=== PATIENT | male | born 1960 ===

== ENCOUNTER 2016-07-09 08:24 | Day surgery (SDC) | payer BC, MEDICAID ==
[2016-07-02 11:04] VITALS: BMI 24.3
[2016-07-09] MEDS ORDERED: Bupivacaine/Epi 0.25%-1:200,000 10 ml PF inj IJ ONE (10:13)
[2016-07-09] MEDS ORDERED: Lidocaine 1% Inj (20ml) ONE (10:14)
[2016-07-09] MEDS ORDERED: cefOXitin IV 1 gm in Dextrose 0 GM/0 ML BAG IVPB ONE (10:14)
[2016-07-09] MEDS ORDERED: Bupivacaine-Epi 0.5%-1:200,000 PF Inj ONE (10:18)
[2016-07-09] MEDS ORDERED: Lactated Ringer's 1,000 ML IV ONE ×3 (10:50→14:30)
[2016-07-09] MEDS ORDERED: Propofol 10 mg/ml Inj (20 ML) ONE (10:53)
[2016-07-09] MEDS ORDERED: Midazolam 2 MG/2 ML VIAL ONE (10:53)
[2016-07-09] MEDS: cefOXitin IV 2 gm in Dextrose 2 GM/50 ML BAG IVPB ONE ×2 (11:05→11:36)
[2016-07-09] MEDS ORDERED: Neostigmine Methylsulfate 3mg/3ml Syringe IV ONE (11:48)
--- NOTE | 2016-07-09 12:34 | PCM.SURG1 ---
Surgeon's Initial Post Op Note - Surgeon's Notes Surgeon: Dr. Maldonado Sales Agent: Dr. Rees PGY-2, Tierney HERNANDEZ Type of Anesthesia: General Endo, Local Pre-Operative Diagnosis: Symptomatic cholelithiasis Operative Findings: intrahepatic gallbladder Post-Operative Diagnosis: Symptomatic cholelithiasis Operation Performed: Laparoscopic cholecystectomy Specimen/Specimens Removed: gallbladder Estimated Blood Loss: EBL {In ML}: 20 Blood Products Given: N/A Drains Used: No Drains Post-Op Condition: Good Date of Surgery/Procedure: 07/09/16 Time of Surgery/Procedure: 12:35
[2016-07-09] MEDS ORDERED: HYDROmorphone 0.5 mg/0.5 ml ISec IVP PRN (12:37)
[2016-07-09] MEDS ORDERED: HYDROmorphone 1 mg/ml ISec ONE ×2 (13:04→14:23)
[2016-07-09 16:39] VITALS: BP 116/66; PULSE 82; RESP 20; TEMP 98; O2SAT 99
--- NOTE | 2016-07-12 08:16 | OP ---
PROCEDURE DATE: 07/09/2016 PREOPERATIVE DIAGNOSES: Chronic cholecystitis and cholelithiasis. POSTOPERATIVE DIAGNOSES: Chronic cholecystitis and cholelithiasis. PROCEDURE DONE: Laparoscopic cholecystectomy. SURGEON: Ruben Maldonado MD. DIALYSIS EQUIPMENT TECHNICIAN: Keke Rees, PGY-1 resident. ANESTHESIA: General endotracheal tube anesthesia. ESTIMATED BLOOD LOSS: Around 10 mL. DRAINS: None. PATHOLOGY: Gallbladder was sent for pathology. COMPLICATIONS: None. INTRAOPERATIVE FINDINGS: The patient had changes of chronic cholecystitis and cholelithiasis. INTRAOPERATIVE STEPS: This 56-year-old male was diagnosed with a chronic cholecystitis and cholelith iasis, and patient was consented for the laparoscopic cholecystectomy, possible open. Brought to the OR, placed supine on the operating table. After the induction of the anesthesia, abdomen was preppe d and draped in a usual sterile fashion. The supraumbilical 1.5 cm incision was made. After incisin g skin, subcutaneous tissue and fascia, Robbie port was placed, pneumo was created. The 12 mm port w as placed in the midline below costal margin. Two 5 mm ports were placed in the midclavicular and an terior axillary line. After the grasper and dissector was introduced, gallbladder was retracted cran ially. Calot's triangle dissection was done. Cystic duct and cystic duct were identified. The crit ical view of safety was also identified. The cystic duct and cystic artery were clipped at 3 places and cut in between 2 clips near the gallbladder, and gallbladder was dissected free from the gallblad neeraj fossa, taken in EndoCatch bag, taken out through the umbilical port site and sent off the table f or the pathology. After proper hemostasis, all the ports were taken out under vision. Pneumo was de flated. Umbilical port site was closed in 2 layers, fascia with 0 Vicryl and skin with 4-0 Monocryl. A dry, sterile dressing was applied. The patient tolerated the procedure well. Count of instrumen ts and gauze was correct. There was no apparent complication. The patient was extubated in the OR, sent to the postanesthesia care unit in stable condition. Ruben Maldonado MD cc: [id number] TT: 07/12/2016 08:15:16 mn
== END 2016-07-09 16:45 | disposition home or self-care (01) ==
LOC: C.SDS 08:24
PROVIDERS: ATTEND Surgery Surgical Critical Care
DX: K80.10 Calculus of gallbladder with chronic cholecystitis without obstruction (principal)
CPT/HCPCS: 47562; 82948; 88304; C1713; J0694; J1170; J1885; J2250; J2405; J2704; J2710; J3010; J7120